=== PATIENT | male | born 1990 | race Caucasian/White ===

== ENCOUNTER 2017-05-14 19:07 | Emergency (ER) | payer OTHER ==
[2017-05-14] MEDS ORDERED: Ibuprofen 800 MG Tab PO ONE (19:35)
--- NOTE | 2017-05-14 19:43 | EDM.PDOC ---
ED HPI GENERAL MEDICAL PROBLEM - General Chief Complaint: Lower Extremity Injury/Pain Stated Complaint: ROLLED ANKLE Time Seen by Provider: 05/14/17 19:22 Source of Information: Reports: Patient History Limitations: Reports: No Limitations - History of Present Illness INITIAL COMMENTS - FREE TEXT/NARRATIVE: 27-year-old male presents for evaluation treatment of injury to the right lateral foot. Injury occurred around 13:30 today. Patient reports that he was at target practice. He states that he was running back from some targets when he everted his ankle and rolled. He is reporting pain to the right lateral foot. Rates the pain as a 7 out of 10. He reports some swelling to the right lateral foot. States it is numb and tingly feeling. No treatments prior to arrival. Patient has been attempting to walk on the foot but has great discomfort with doing so. Onset: Today Location: Reports: Lower Extremity, Right Right Ankle Pain Score (Numeric/FACES): 7 Past Medical History Musculoskeletal History: Reports: Other (See Below) Other Musculoskeletal History: two knee surgies in the past, torn meniscus Social & Family History - Family History Family Medical History: Noncontributory - Tobacco Use Smoking Status *Q: Never Smoker - Caffeine Use Caffeine Use: Reports: None - Recreational Drug Use Recreational Drug Use: No Review of Systems - Review of Systems Review Of Systems: See Below Musculoskeletal: Reports: Foot Pain (right lateral foot over the cuboid), Joint Swelling (over the right lateral foot over the cuboid) Skin: Denies: Wound Neurological: Reports: Numbness (right foot), Tingling (right foot) ED EXAM, GENERAL - Physical Exam Exam: See Below Exam Limited By: No Limitations General Appearance: Alert, WD/WN, No Apparent Distress Respiratory/Chest: No Respiratory Distress Cardiovascular: Normal Peripheral Pulses, Regular Rate, Rhythm Extremities: Normal Capillary Refill, Other (tenderness to the right lateral cuboid with overlying swelling) Neurological: Alert, Oriented, Normal Cognition, No Motor/Sensory Deficits ( reports sensation to light touch of the foot) Psychiatric: Normal Affect, Normal Mood Skin Exam: Warm, Dry, Normal Color. No: Ecchymosis, Erythema Course - Vital Signs Last Recorded V/S: Last Vital Signs Temp 36.9 C 05/14/17 19:16 Pulse 93 05/14/17 19:16 Resp 20 05/14/17 19:16 BP 135/88 05/14/17 19:16 Pulse Ox 95 05/14/17 19:16 - Orders/Labs/Meds Orders: Active Orders 24 hr Category Date Time Status Ankle Min 3V Rt [CR] Stat Exams 05/14/17 19:35 Taken Foot Comp Min 3V Rt [CR] Stat Exams 05/14/17 19:35 Taken Meds: Medications Discontinued Medications Generic Name Dose Route Start Last Admin Trade Name Henrietta PRN Reason Stop Dose Admin Ibuprofen 800 mg 05/14/17 19:35 05/14/17 19:42 Motrin PO 05/14/17 19:36 800 mg ONETIME ONE Administration - Radiology Interpretation Free Text/Narrative:: X-ray of the right foot and ankle shows no acute fractures or dislocations. Reviewed by myself and Dr. López. - Re-Assessments/Exams Free Text/Narrative Re-Assessment/Exam: 05/14/17 20:31 I reviewed the x-ray results of the patient. Offered him crutches and Eduin bandage. He declined, states he would not use these. Encouraged rest, ibuprofen, ice, compression as much as possible. 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 I encouraged him not to go to work if he cannot do his job safely. He agrees. I'll write him a note if he does need it. Discharge instructions as documented. Departure - Departure Time of Disposition: 20:32 Disposition: Home, Self-Care 01 Condition: Good Clinical Impression: Foot sprain - Discharge Information Instructions: Foot Sprain Referrals: PCP,None [Primary Care Provider] - Forms: ED Department Discharge, ED Return to Work/School Form Additional Instructions: [id number] Tylenol or Motrin as needed for pain relief. Recommend taking ibuprofen 600-800 mg every 6 hours. Recommend a Eduin bandage to the foot for compression. Recommending off the foot as much as possible. Recommend icing the swollen areas 3 or 4 times a day for 10-15 minutes. Follow-up with family medicine if symptoms are not much better within 1 week. Please return to the ER if your symptoms change or worsen. - My Orders Last 24 Hours: My Active Orders 05/14/17 19:35 Ankle Min 3V Rt [CR] Stat Foot Comp Min 3V Rt [CR] Stat - Assessment/Plan Last 24 Hours: My Active Orders 05/14/17 19:35 Ankle Min 3V Rt [CR] Stat Foot Comp Min 3V Rt [CR] Stat
--- NOTE | 2017-05-15 06:57 | CR ---
Right foot: Four views of the right foot were obtained. Comparison: No previous study. Joint spaces are maintained. No fracture, dislocation or other bony abnormality is seen. Impression: 1. No abnormality is appreciated on right foot study. Diagnostic code #1
--- NOTE | 2017-05-15 06:57 | CR ---
Right ankle: Four views of the right ankle were obtained. Comparison: No prior ankle study. Findings: Ankle mortise is symmetric. Minimal long of bone is identified off the medial talar dome on one view which is felt compatible with minimal chip fracture. Ages of this is indeterminate. No additional fracture or other bony abnormality is seen. Impression: 1. Minimal long of bone off the medial talar dome compatible with small chip fracture, age-indeterminate. 2. Right ankle exam is otherwise unremarkable. Diagnostic code #3
== END 2017-05-14 21:00 | disposition home or self-care (01) ==
LOC: JD.ED 19:07
DX: S93.601A Unspecified sprain of right foot, initial encounter (principal); X50.1XXA Overexertion from prolonged static or awkward postures, initial encounter; Z98.890 Other specified postprocedural states
CPT/HCPCS: 73610; 73630; 99284; A9270; 99283